=== PATIENT | female | born 1980 | race Caucasian/White ===

== ENCOUNTER → 2016-08-28 | Day surgery (SDC) | payer OTHER ==
[2016-08-28 10:18] LABS: INR 0.95 (0.9-1.2); PROTHROMBIN TIME 12.3 SECONDS (11.7-14.0); PTT 27.6 SECONDS (23.2-31.4)
== END | disposition home or self-care (01) ==
LOC: FAS 08:42
PROVIDERS: Anesthesiology
DX: K43.6 Other and unspecified ventral hernia with obstruction, without gangrene (principal); I69.954 Hemiplegia and hemiparesis following unspecified cerebrovascular disease affecting left non-dominant side; F17.210 Nicotine dependence, cigarettes, uncomplicated; I10 Essential (primary) hypertension; E03.9 Hypothyroidism, unspecified; G47.30 Sleep apnea, unspecified; Z82.61 Family history of arthritis; Z82.3 Family history of stroke; Z82.5 Family history of asthma and other chronic lower respiratory diseases; Z83.42 Family history of familial hypercholesterolemia; Z82.49 Family history of ischemic heart disease and other diseases of the circulatory system; Z83.3 Family history of diabetes mellitus; Z81.1 Family history of alcohol abuse and dependence; Z82.62 Family history of osteoporosis; Z79.82 Long term (current) use of aspirin; Z79.01 Long term (current) use of anticoagulants; Z79.899 Other long term (current) drug therapy
CPT/HCPCS: 36415; 84703; 85610; 85730; C1781; J0690; J2405; J2704; J2710; J3010